=== PATIENT | female | born 1945 | race Caucasian/White ===

== ENCOUNTER 2021-09-23 14:29 | Outpatient (CLI) | payer MEDICARE, BC, SELFPAY ==
--- NOTE | 2021-09-23 14:40 | CRLHL7_ITS ---
For Patients: As a result of the Century Cures Act, medical imaging exams and procedure reports are released immediately into your electronic medical record. You may view this report before your referring provider. If you have questions, please contact your health care provider. BILATERAL MAMMOGRAM WITH COMPUTER-AIDED DETECTION TECHNIQUE: CC and MLO views were obtained. These mammographic images have been obtained using full-field digital technique. These mammographic images were interpreted with the benefit of computer-aided detection. COMPARISON FILM: 09/17/2020, 09/16/2019, 09/06/2018. FINDINGS: There are scattered areas of fibroglandular density IMPRESSION: There is no radiographic evidence for malignancy. ASSESSMENT: BI-RADS Category 1: Negative RECOMMENDATION: Routine screening mammogram in 1 year. A lay language report of this examination will be provided to the patient. Bradley Parmar M.D. Diagnostic Radiologist [email or web address] IRAM/Dictated by: Bradley Parmar MD @ 09/24/2021 8:50:00 AM (Electronically Signed)
== END 2021-09-23 14:30 | disposition home or self-care (01) ==
LOC: MAMMO 14:29
PROVIDERS: PCP Family Medicine; Visit Provider Family Medicine
DX: Z12.31 Encounter for screening mammogram for malignant neoplasm of breast (principal)
CPT/HCPCS: 77067

== ENCOUNTER 2021-10-04 10:15 | Outpatient (RCR) | payer MEDICARE, BC, SELFPAY ==
--- NOTE | 2021-10-03 11:57 | URNOTE ---
Received request for prior auth for [place] ([id number]). Pt has Medicare and [place]. Prior authorization is not required as services are based on medical necessity and follow medicare guidelines.
[2021-10-04 10:40] VITALS: BP 106/59; PULSE 82; RESP 16; TEMP 36.4; O2SAT 97
[2021-10-04] MEDS: DENOSUMAB 60 MG/ML SYRINGE SUBCUT (10:41)
== END 2021-10-13 23:59 | disposition home or self-care (01) ==
LOC: CCIC 10:15
PROVIDERS: PCP Family Medicine; Visit Provider Family Medicine
DX: M81.0 Age-related osteoporosis without current pathological fracture (principal)
CPT/HCPCS: 96372; J0897

== ENCOUNTER 2021-10-23 08:45 | Outpatient (RCR) | payer MEDICARE, BC, SELFPAY ==
--- NOTE | 2021-09-25 12:19 | PT.OPEX ---
PT [facility] Out[facility] Eval PT [facility] Outpatient Eval Start: 09/25/21 08:28 Freq: Status: Active Protocol: Document 09/25/21 08:28 [place] (Rec: 09/25/21 09:42 MBB [id number]) E-Signed By Kate Martin DPT Physical Therapy Outpatient Evaluation Insurance Information Recert Due Date 12/18/21 Insurance Name Medicare B Medical Diagnosis muscle pain; scoliosis; leg length discrepancy Treating Diagnosis right lumbar radiculopathy; bilateral thigh pain/weakness when walking; pelvic asymmetry ; glute weakness Referring MD Lynda Whyte MD Subjective Subjective Right buttock and low back pain that travels down lateral thigh and leg. Insideous onset. When walking both thighs and anterior hips get sore. Used to be able to walk 5 miles but now can hardly make it 1 mile. This has been going on for a long time. Exercises 2 x per week at a class. Naproxen does help calm the pain. Irritating movements include getting up from chair and sitting on toilet especially in the morning. Most comfortable position is with legs up or in cisco cross. No numbness or tingling. Thigh pain with daily walking. Legs feel weak or sluggish. No injections. Walking does not worsening right leg pain. Right leg pain is 9/10 when flared and 5/10 on daily basis. Thigh pain when walking is at least 5/10. Has cramps all over body in neck, hands, legs, fingers. PMH: scoliosis; stenosis; osteoporosis PLOF: Current Work Status Retired Objective Range of Motion Flex: feels good Ext: low back pain Sidebend R: left SI area L: left SI area Rotation neutral: Strength Glute weakness with bridge Palpation Tender at ASIS Balance & Gait Normal gait mechanics Posture Stable active posture; Right convexity scoliosis severe in mid thoracic Sensation/Reflexes no numbness or tingle Functional Test Performed & Score Slump test (-) SLR (-) Piriformis test (+) Supine to sit test (right longer, stays longer, shifts shorter) inconclusive but leg lengths do shift indicating SI instability Hip scour test (-) Assessment Assessment/Impression 76 yo with chronic bilateral thigh pain when walking with confirmed diagnosis of lumbar stenosis and acute onset of right lumbar radiculopathy of insidious onset about 1 month ago. She has severe scoliosis and osteoporosis. Directional preference testing did not reveal a strong directional preference but flexion did feel good and seems to be the most comfortable position. No neural tension noted today. Facet opening techniques did result in centralization of leg pain. Signs and symptoms indicate she is experiencing a mechanical lumbar nerve irritation causing lumbar radiculopathy and stenosis causing thigh pain when walking. She will benefit from skilled PT to specifically resolve right leg pain for return to baseline. Primary Functional Limitations sleeping; rising to stand; sitting on toilet in the morning Plan of Care Rehabilitation Potential Good Physical Therapy Goals By 12/18/21 patient will... 1) Report 90% resolution of right leg pain early in the morning and during sit to stand transfers. 2) Sleep without right leg pain disrupting her sleep. 3) Demonstrate stable pelvic posturing without leg length changes. Coordination/Communication With Referral Source Treatment Plan/Direct Interventions Gait Training,Joint Mobilization,Manual Therapy, Neuromuscular Re-ed,Orthotics/ Braces,Therapeutic Activities, Therapeutic Exercises Frequency/Duration 1 x per week for 8 weeks then prn for 4 weeks Patient Will Be Discharged From Therapy Completion of LTG(s),Skills Plateau,Independent w/HEP, Independently Progressing Evaluation Billing Untimed Code Treatment Minutes 30 Complexity Moderate Certification Information Initial Certification Date 09/25/21 Ending Certification Date 12/18/21
--- NOTE | 2021-10-23 11:58 | REH.PT ---
Lexi is not responding to PT treatment. Focused treatment on right radicular pain. She has some calming of symptoms during session and interventions felt good but minimal inter-session changes have occurred after 3 weeks. Referring her back to you for discussion about seeing Dr. Linn. -Kate Martin, PT
== END 2021-11-07 13:32 | disposition home or self-care (01) ==
PROVIDERS: PCP Family Medicine; Visit Provider Family Medicine
DX: M54.16 Radiculopathy, lumbar region (principal); Z51.89 Encounter for other specified aftercare; M54.50 Low back pain, unspecified
CPT/HCPCS: 97110; 97140; 97162

== ENCOUNTER 2021-12-20 12:46 | Outpatient (CLI) | payer MEDICARE, BC, SELFPAY ==
--- OUTSIDE RECORDS SUMMARY | 2021-12-20 12:48 | XMS_ITS | Clinical Summary ---
:1945 Author Organization [facility] [place] [address] Care Team Providers Name Role Phone Pcp, No Primary Care Provider Unavailable Allergies No known active allergies Medications Medication Sig Dispensed Refills Start Date End Date Status sertraline (ZOLOFT) 25 Take 25 mg by 0 05/28/2015 Active mg tablet mouth once daily. simvastatin (ZOCOR) 20 Take 20 mg by 0 05/28/2015 Active mg tablet mouth once daily. esomeprazole (NEXIUM) Take 1 capsule by 30 capsule 1 7 Active 20 mg mouth once daily capsuleIndications: before a meal. 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 Lumbar facet arthropathy 08/18/2016 Immunizations Name Administration Dates Next Due AMB INFLUENZA IIV3 (AGE 65+ YRS) PF (Flu Clinic Only) 2016 AMB Influenza, IIV3 (Age >=3 years)(Flu Clinic Only) 012 AMB Influenza, IIV4 PF (=>6 mos Flulaval,Fluzone 12/05/2013 Fluarix)(Flu Clinic Only) Influenza, High-dose Inactivated 12/04/2015, 12/05/2014 Influenza, IIV3 (Age >=3 years) 12/16/2012 Tdap 09/15/2011 Family History Medical History Relation Name Comments Heart Disease Father CHF, pace maker Cancer-breast Mother Age 80 Good Health Sister Relation Name Status Comments Father Mother Sister Social History Tobacco Use Types Packs/Day Years Used Date Current Every Day Smoker Cigarettes 0.5 50 Zachery t: 09/13/2009 Smokeless Tobacco: Never Used Tobacco Cessation: Counseling Given: Yes Alcohol Use Standard Drinks/Week Comments Yes 0 (1 standard drink = 0.6 oz pure alcoho l) Two glasses of wine a day Alcohol Habits Answer Date Recorded How often do you have a drink containing Not asked alcohol? How many drinks containing alcohol do you Not asked have on a typical day when you are drinking? How often do you have six or more drinks on Not asked one occasion? Comment: Two glasses of wine a day 09/24/2009 Sex Assigned at Date Recorded Not on file Obstetrics History Last Filed Vital Signs Vital Sign Reading Time Taken Comments Blood Pressure 113/72 12/01/2016 11:11 AM CDT Pulse 82 12/01/2016 11:11 AM CDT Temperature 36.6 ??C (97.9 ??F) 12/01/2016 11:11 AM CDT Respiratory Rate 12 09/22/2016 1:20 PM CDT Oxygen Saturation 99% 12/01/2016 11:11 AM CDT Inhaled Oxygen Concentration - - Weight 57 kg (125 lb 11.2 oz) 12/01/2016 11:11 AM CDT Height 159 cm (5' 2.6) 10/28/2016 10:02 AM CDT Body Mass Index 22.55 10/28/2016 10:02 AM CDT Plan of Treatment Health Maintenance Due Date Last Done Comments COVID-19 vaccine series (#1) 1945 Hepatitis C screening for age 0205[birth year]07[birth year]1961 18-79 Zoster (shingles) series for age 0205/07/1993 50+ (1 of 2) DEXA/DXA scan for age 65+ 2008 Pneumococcal series for age 65+ (1 2008 - PCV) BMI (ht and wt on same day) for 10/28/2017 10/28/2016, 07/2016, age 18+ 12/04/2015, Additional history exists Depression screening for age 12+ 10/28/2017 10/28/2016, , 09/03/2015 Tetanus booster 09/14/2021 09/15/2011 Influenza for age 65+ 11/14/2021 12/26/2016, 12/04/2015, 12/05/2014, Additional history exists Tdap Completed 09/15/2011 Results Not on filefrom Last 3 Months Insurance Payer Benefit Plan / Subscriber ID Effective Phone Address T ype Group Dates RISK MANAGEMENT RISK MANAGEMENT [id number] 2011-Prese [phone] [place] [id number] MEDICARE PART B MEDICARE PART B [id number] 2008-Prese ATTN: CLAIMS - HB USE ONLY HB ONLY nt [address] [place] [address] MEDICARE PART A MEDICARE PART A [id number] 2008-Prese ATTN: CLAIMS - HB USE ONLY HB ONLY nt [address] [place] [address] [address] [place] [place] BL[place]OSS [id number] 2016-Prese [address] [address] [place] [place] [address] [place], [place] [id number] BLUE CROSS BLUE CROSS [id number] 2016-[place] [address] [address] [address] [place], [place] [id number] [phone] (Home) [place] [phone] [place],RISK Third Green Party Other [phone] MANAGEMENT Liability 1 (Home) [place] [id number] Care Teams Machine Operator Cane Cutter Relationship Specialty Start Date End Date Pcp, No PCP - General 10/24/16 .
--- NOTE | 2021-12-20 13:00 | CRLHL7_ITS ---
For Patients: As a result of the Century Cures Act, medical imaging exams and procedure reports are released immediately into your electronic medical record. You may view this report before your referring provider. If you have questions, please contact your health care provider. INDICATION: Right sciatica. COMPARISON: 06/05/2018. Technique Sagittal T1, T2, and STIR sequences. Axial T1 and T2 weighted sequences. FINDINGS: Stable lumbar scoliotic curvature convex the left. In the sagittal plane, trace degenerative anterolisthesis of L4 on L5. Otherwise, normal alignment. No fractures. No vertebral body loss of height. No ligamentous injury. No suspicious osseous lesions. Normal conus terminates at L1-2. T12-L1: No spinal canal or neural foraminal narrowing. L1-2: Disc degeneration diffuse disc bulge eccentric to the left. No narrowing of spinal canal. Mild narrowing of the left neural foramen. No narrowing of the right neural foramen. L2-3: Disc degeneration. Diffuse disc bulge. No narrowing of spinal canal. Mild narrowing of the bilateral foramina. Mild facet arthropathy. L3-4: Disc degeneration loss disc height. Diffuse disc bulge eccentric to the left. Mild narrowing of spinal canal. Mild narrowing of the right neural foramen. No narrowing of the left neural foramen. Loss arthropathy. L4-5: Disc degeneration. Diffuse disc bulge eccentric to the right. Mild to moderate narrowing of spinal canal. Moderate right and mild left neural foraminal narrowing. Potential impingement of the exiting right L4 nerve root. Mild facet arthropathy. L5-S1: Disc generation and diffuse disc bulge eccentric to the left. No narrowing of the spinal canal. No impingement of the traversing S1 nerve roots. Mild narrowing of the left neural foramen. No narrowing of the right neural foramen. Degenerative changes of the SI joints. Normal paraspinal soft tissues. IMPRESSION: 1. Lumbar scoliotic curvature convex left. 2. Trace degenerative anterolisthesis of L4 on L5. Otherwise, normal alignment. No fractures 3. Lumbar spondylosis. 4. At L3-4, mild narrowing of spinal canal and right neural foramina. 5. At L4-5, mild to moderate narrowing of the spinal canal. Moderate right and mild left neural foraminal narrowing. Potential impingement of the exiting right L4 nerve root 6. At L5-S1, mild narrowing of the left neuroforamen Dictated by Tayo Wick MD @ 12/24/2021 10:45:56 AM (Electronically Signed)
== END 2021-12-20 12:47 | disposition home or self-care (01) ==
LOC: MRI 12:46
PROVIDERS: PCP Family Medicine; Visit Provider Family Medicine
DX: M54.31 Sciatica, right side (principal); M47.896 Other spondylosis, lumbar region; S33.141A Dislocation of L4/L5 lumbar vertebra, initial encounter
CPT/HCPCS: 72148

== ENCOUNTER 2022-01-28 10:19 | Outpatient (CLI) | payer MEDICARE, BC, SELFPAY ==
--- OUTSIDE RECORDS SUMMARY | 2022-01-28 10:21 | XMS_ITS | Clinical Summary ---
:1945 Author Organization [facility] [place] [address] Care Team Providers Name Role Phone Lynda Whyte MD Primary Care Provider [phone] Allergies No known active allergies Medications Medication [...] thoracolumbar spine 08/18/2016 Lumbar facet arthropathy 08/18/2016 Encounters Date Type Specialty Care Team Description 12/30/2021 Orders Only Glen Linn MD <No scans attached> 12/20/2021 Orders Only Scanner <No scans attac hed> from Last 3 Months Immunizations Name Administration Dates Next Due AMB [...] 10/28/2016 10:02 AM CDT Plan of Treatment Upcoming Encounters Date Type Specialty Care Team Description 01/28/2022 Office Visit Glen Linn MD Arrived [phone] (Wo rk) Health Maintenance Due Date Last Done Comments COVID-19 vaccine series (#1) 1945 01/01/2021, 021, 05/05/2020 Hepatitis C screening for age 0205/07/1963 18-79 [...] 12/05/2014, Additional history exists Tdap Completed 09/15/2011 Procedures Procedure Name Priority Date/Time Associated Diagnosis Comme nts AMB EPIDURAL STEROID Routine 01/28/2022 8:04 AM Lumbar facet INJECTION EMAIL MARKETING COORDINATOR arthropathy Other idiopathic scoliosis, thoracolumbar re gion Lumbar radiculopathy SCAN-MRI INTERPRETATION 12/20/2021 12:00 AM CDT from Last 3 Months Results SCAN-MRI INTERPRETATION (12/20/2021 12:00 AM CDT) Narrative This result has an attachment that is no t available. Scanner OTHER from Last 3 Months Insurance Payer Benefit Plan / Subscriber ID Effective Phone Address T ype Group Dates RISK MANAGEMENT RISK MANAGEMENT [id number] 2011-Prese [phone] [place] [address] MEDICARE PART B MEDICARE PART B [id number] 2008-Prese ATTN: CLAIMS - HB USE ONLY HB ONLY nt [address] [place] [address] MEDICARE PART A MEDICARE PART A [id number] 2008-Prese ATTN: CLAIMS - HB USE ONLY HB ONLY nt [address] [place] [address] [place] BL[place] [id number] 2016-Prese [address] [address] [address] [address] [place], [place] [id number] BLUE CROSS BLUE [place]OSS [id number] 2016-[place] [address] [address] [address] [place], [place] [id number] [phone] (Home) [phone] [place],RISK Third Libertarian Other [phone] [facility] Liability 1 (Home) [place] [id number] Care Teams Investigation Division Lieutenant Relationship Specialty Start Date End Date Lynda Whyte MD PCP - General Family Practice 12/31/211999 [facility] [place] [id number]
== END 2022-01-28 10:20 | disposition home or self-care (01) ==
LOC: INJ CL 10:19
PROVIDERS: PCP Family Medicine; Visit Provider Family Medicine
DX: M54.16 Radiculopathy, lumbar region (principal)
CPT/HCPCS: 64483; J1100; Q9966

== ENCOUNTER 2022-03-26 09:54 | Outpatient (CLI) | payer MEDICARE, BC, SELFPAY ==
[2022-03-26 13:49] LABS: Creatinine* 0.7 mg/dL (0.5-1.5); Estimated Glomerular Filt Rate 88 ml/min
[2022-03-26 13:50] LABS: Calcium* 9.2 mg/dL (8.4-10.6)
== END 2022-03-26 09:55 | disposition home or self-care (01) ==
PROVIDERS: PCP Family Medicine; Visit Provider Family Medicine
DX: M81.0 Age-related osteoporosis without current pathological fracture (principal)
CPT/HCPCS: 82310; 82565

== ENCOUNTER 2022-04-09 10:48 | Outpatient (RCR) | payer MEDICARE, BC, SELFPAY ==
[2022-04-09 11:00] VITALS: BP 104/65; PULSE 80; RESP 16; TEMP 36.3; O2SAT 96
[2022-04-09 11:04] VITALS: BP 104/65; PULSE 80; RESP 16; TEMP 36.3; O2SAT 96
[2022-04-09] MEDS: DENOSUMAB 60 MG/ML SYRINGE SUBCUT (11:23)
--- NOTE | 2022-04-09 15:47 | ONC.NURNOTE ---
Cr. CL. above 30.0
--- NOTE | 2022-09-23 10:24 | URNOTE ---
Received request for prior authorization for [employer] ([id number]). Pt has Medicare and [place]. Prior authorization is not required as services are based on medical necessity and follow medicare guidelines.
== END 2022-10-06 23:59 | disposition home or self-care (01) ==
LOC: CCIC 10:48
PROVIDERS: PCP Family Medicine; Referring Provider Family Medicine; Visit Provider Family Medicine
DX: M81.0 Age-related osteoporosis without current pathological fracture (principal)
CPT/HCPCS: 96372; J0897

== ENCOUNTER 2022-09-11 07:50 | Outpatient (CLI) | payer MEDICARE, BC, SELFPAY | END 2022-09-11 07:51 | disposition home or self-care (01) | LOC: NFLDREF 10:36 | PROVIDERS: PCP Family Medicine; Referring Provider Family Medicine; Visit Provider Family Medicine | DX: E78.5 Hyperlipidemia, unspecified (principal); F41.9 Anxiety disorder, unspecified; R79.89 Other specified abnormal findings of blood chemistry; M81.0 Age-related osteoporosis without current pathological fracture; M79.10 Myalgia, unspecified site | CPT/HCPCS: 80053; 80061; 82306; 84443 ==

== ENCOUNTER 2022-09-24 13:33 | Outpatient (CLI) | payer MEDICARE, BC, SELFPAY ==
--- NOTE | 2022-09-24 13:40 | CRLHL7_ITS ---
For Patients: As a result of the Century Cures Act, medical imaging exams and procedure reports are released immediately into your electronic medical record. You may view this report before your referring provider. If you have questions, please contact your health care provider. BILATERAL SCREENING MAMMOGRAM WITH COMPUTER-AIDED DETECTION TECHNIQUE: CC and MLO views were obtained. These mammographic images have been obtained using full-field digital technique. These mammographic images were interpreted with the benefit of computer-aided detection. COMPARISON FILM: 09/23/21, 09/25/20, 09/26/19. FINDINGS: The breasts are heterogeneously dense, which may obscure small masses IMPRESSION: There is no radiographic evidence for malignancy. ASSESSMENT: BI-RADS Category 1: Negative RECOMMENDATION: Routine screening mammogram in 1 year. A lay language report of this examination will be provided to the patient. Bradley Parmar M.D. Diagnostic Radiologist [email or web address] DON/estella Transcribed: 4:16 p.olivia soria/Dictated by: Bradley Parmar MD @ 09/25/2022 1:03:00 PM (Electronically Signed)
== END 2022-09-24 13:34 | disposition home or self-care (01) ==
LOC: MAMMO 13:34
PROVIDERS: PCP Family Medicine; Visit Provider Family Medicine
DX: Z12.31 Encounter for screening mammogram for malignant neoplasm of breast (principal); R92.2 Inconclusive mammogram
CPT/HCPCS: 77067

== ENCOUNTER 2022-10-01 14:25 | Outpatient (CLI) | payer MEDICARE, BC, SELFPAY ==
--- NOTE | 2022-10-01 14:30 | CRLHL7_ITS ---
For Patients: As a result of the Cures Act, medical imaging exams and procedure reports are released immediately into your electronic medical record. You may view this report before your referring provider. If you have questions, please contact your health care provider. DXA BONE MINERAL DENSITY STUDY, 10/01/2022 Reason for exam: Osteoporosis. Current height (inches): 62.0 Weight (lbs.): 125.0 Menopause age: 48 Ethnicity: White 1. Have you had a previous hip or vertebral fracture? No. 2. Have you had any fractures during your adult life which did not result from significant trauma (e.g., auto accident)? No. 3. Did either of your parents have a hip fracture? No. 4. Do you smoke? Yes. 5. Have you ever taken Glucocorticoids? No. 6. Do you have rheumatoid arthritis? No. 7. Do you have secondary osteoporosis? No. 8. Do you drink 3 or more alcoholic drinks per day? No. 9. Are you being treated for osteoporosis? Yes. 10. Have you ever taken any of the following medications: Actonel, Evista, Fosamax, Miacalcin, Reclast, Boniva, Forteo, HRT (i.e., estrogen/hormone therapy), Protelos, Prolia, Vitamin D, Calcium, other ??? please specify. ANSWER: Yes; Fosamax, Reclast, vitamin D, Prolia, Calcium. 11. Do you have any of the following medical conditions: Anorexia or bulimia, asthma or emphysema, end stage renal disease, hyperparathyroidism, any seizure disorders, cancer, inflammatory bowel diseases, hysterectomy, other ??? please specify. ANSWER: No. 12. What was your maximum height (inches)? 64. 13. Do you perform weightbearing exercise regularly? No. 14. Do you regularly consume dairy products? Yes. 15. Do you drink caffeinated beverages? Yes. 16. At what age did your period start? 11. 17. Are you premenopausal? No. 18. How many full-term pregnancies have you had? 2. 19. Have you ever missed your period for more than 6 months in a row (not including or menopause)? No. TECHNIQUE: Bone mineral density study was performed using the Bring[employer]. FINDINGS: The results of the study expressed as bone mineral density (BMD) are as follows: Lumbar Spine L1 to L2: BMD: 0.980 g/cm2. T-score: 0.0. Z-score: 2.5. Neck Left: BMD: 0.645 g/cm2. T-score: -1.8. Z-score: 0.4. Right: BMD: 0.645 g/cm2. T-score: -1.8. Z-score: 0.4. Total Left: BMD: 0.761 g/cm2. T-score: -1.5. Z-score: 0.5. Right: BMD: 0.748 g/cm2. T-score: -1.6. Z-score: 0.4. Radius Left radius 33%: BMD: 0.517 g/cm2. T-score: -2.9. Z-score: 0.1. IMPRESSION: Osteoporosis. Minor interval increase in the mineralization of the hips by 1.7% and wn the lumbar spine by 2.2%. Essentially stable mineralization of the wrist. COMPARISON: Compared with scan of 09/20/2020, the bone mineral density has increased by 2.2% at the spine, increased by 1.7% at the hip, and increased by 0.3% at the left radius. Compared with scan of 09/06/2018, the bone mineral density has increased by 12.0% at the hip. *Comparison exams done prior to 08/2019 were performed on different unit, AMS VariCode. CHANTAL GUTIÉRREZ M.D. Diagnostic/Nuclear Medicine Radiologist [email or web address] Transcribed: 5:[address]/Dictated by: Chantal Gutiérrez MD @ 10/01/2022 3:22:00 PM (Electronically Signed)
== END 2022-10-01 14:26 | disposition home or self-care (01) ==
LOC: RAD 14:26
PROVIDERS: PCP Family Medicine; Visit Provider Family Medicine
DX: M81.0 Age-related osteoporosis without current pathological fracture (principal)
CPT/HCPCS: 77080

== ENCOUNTER 2022-10-10 11:16 | Outpatient (RCR) | payer MEDICARE, BC, SELFPAY ==
[2022-10-10 11:31] VITALS: BP 111/79; PULSE 77; RESP 18; TEMP 36.4; O2SAT 96
[2022-10-10] MEDS: DENOSUMAB 60 MG/ML SYRINGE SUBCUT (11:46)
--- NOTE | 2023-03-26 14:04 | URNOTE ---
Received request for prior authorization for [employer] ([id number]). Pt has Medicare and [place]. Prior authorization is not required as services are based on medical necessity and follow medicare guidelines.
== END 2023-04-08 23:59 | disposition home or self-care (01) ==
LOC: CCIC 11:16
PROVIDERS: PCP Family Medicine; Referring Provider Family Medicine; Visit Provider Family Medicine
DX: M81.0 Age-related osteoporosis without current pathological fracture (principal)
CPT/HCPCS: 96372; J0897

== ENCOUNTER 2023-04-13 09:40 | Outpatient (RCR) | payer MEDICARE, BC, SELFPAY ==
[2023-04-13 10:25] LABS: Creatinine* 0.7 mg/dL (0.5-1.5); Estimated Glomerular Filt Rate 88 ml/min
[2023-04-13 10:26] LABS: Calcium* 8.7 mg/dL (8.4-10.6)
[2023-04-13 10:37] VITALS: BP 107/64; PULSE 67; RESP 16; TEMP 36.3; O2SAT 96
[2023-04-13] MEDS: DENOSUMAB 60 MG/ML SYRINGE SUBCUT (10:55)
--- NOTE | 2023-07-13 14:54 | ONC.NURNOTE ---
received phone call to lindsey Elliott's appointment on 10/12/2023, she is transferring care to [place].
== END 2023-10-10 23:59 | disposition home or self-care (01) ==
LOC: CCIC 09:40
PROVIDERS: PCP Family Medicine; Referring Provider Family Medicine; Visit Provider Clinical Nurse Specialist
DX: M81.0 Age-related osteoporosis without current pathological fracture (principal)
CPT/HCPCS: 36415; 82310; 82565; 96372; J0897

== ENCOUNTER 2024-08-29 06:10 | Day surgery (SDC) | payer MEDICARE, BC, SELFPAY ==
[2024-08-29] VITALS (7 sets, daily range): BP systolic 114–142; BP diastolic 55–78; PULSE 68–79; RESP 15–16; TEMP 36.5–36.7; O2SAT 95–97; BMI 22.8
[2024-08-29] MEDS: LIDOCAINE 1%-EPI 1:100,000 20 ML INFILTRATI (06:50)
[2024-08-29] MEDS: BUPIVACAINE 0.5% 30 ML INJECTION (06:50)
[2024-08-29] MEDS: ETHYL CHLORIDE 1 APPLICATION 1 APPLIC TOPICAL (06:50)
--- NOTE | 2024-08-29 07:33 | PM.ORPRC ---
Procedure Note Date of procedure: 08/29/24 Procedure: PREOPERATIVE DIAGNOSIS: 1. Right thumb flexor tenosynovitis - trigger finger POSTOPERATIVE DIAGNOSIS: 1. Right thumb flexor tenosynovitis - trigger finger PROCEDURE: 1. Right thumb flexor tendon sheath open release (A1 elizabeth) SURGEON: Elvin Kim MD. INTELLIGENCE GROUP SUPERVISOR: Alfredo Cochran PA-C ANESTHESIA: Local anesthetic 4ml via 50:50 mixture of 1% Lidocaine with epi and 0.5% marcaine plain EBL: 2mL IMPLANTS: None TOURNIQUET: None COMPLICATIONS: None evident INDICATIONS: The patient is a pleasant 79yo Female who has experienced right thumb catching/triggering for number of months. It has progressively gotten worse. Given the failure of nonoperative management, and how this affects daily life, surgery was recommended. DESCRIPTION OF PROCEDURE: Following a thorough discussion of risks, benefits, and alternatives consent was obtained and the operative digit(s) was marked. The patient was brought to the operating room and placed supine on the operating table. Local anesthesia induction was undertaken in preop holding. No antibiotics were administered as this was planned to be a local case only. Proper time-out was performed identifying proper patient, site, and procedure. The operative extremity was prepped and draped in the appropriate sterile fashion using ChloraPrep. An incision was made on the palmar surface of the hand overlying the MCP joint region of the appropriate digit(s) respecting the palmar creases being cautious not to cross these perpendicularly. Sharp incision through the skin, and blunt dissection through subcutaneous tissue allowing protection of crossing neurologic structures. The A1 elizabeth was visualized directly. It was incised sharply with a 15 blade. It was released completely from its distal to proximal extent under direct visualization. The tendon was inspected and found to be mildly striated consistent with some friction. Otherwise, it was intact. The tendon was removed out of the wound, and further inspected. The patient was asked to manually flex and extend the digits and showed no further catching. The catching, which was visualized initially, was no longer evident with reproduction of a manual fist and relaxation. Closure was performed with 4-O nylon in interrupted fashion. Soft dressings were applied, and the patient was transferred to the recovery room in stable condition. PLAN: 1. Encourage elevation of the operative extremity. 2. Range of motion of the fingers and hand/wrist as tolerated. 3. Ibuprofen/acetaminophen as needed for pain control. 4. Follow up with PA visit in 12-16 days for wound check and suture removal.
[2024-08-29] MEDS: BACITRACIN OINTMENT BULK TUBE 1 APPLIC TOPICAL (07:35)
== END 2024-08-29 07:56 | disposition home or self-care (01) ==
PROVIDERS: PCP Nurse Practitioner; Visit Provider Orthopaedic Surgery Sports Medicine
PROC: (CPT 26055; principal; 2024-08-29 07:15)
DX: M65.311 Trigger thumb, right thumb (principal); M65.841 Other synovitis and tenosynovitis, right hand
CPT/HCPCS: 26055; J0665